=== PATIENT | female | born 1945 | race Caucasian/White ===

== ENCOUNTER 2021-03-25 10:21 | Emergency (ER) | payer MEDICARE, MEDICAID ==
[~2021-03-25] VITALS: Ht 170.2 cm; Wt 74.0 kg
[2021-03-25] MEDS ORDERED: ONDANSETRON 2MG/ML, 2ML ONE (10:52)
--- NOTE | 2021-03-25 10:57 | NUR ---
[employer] SPECIALIST PER SEP. IVF RUNNING.
[2021-03-25] MEDS ORDERED: SODIUM CHLORIDE 0.9% 1,000ML IVBOLUS ONE (11:00)
[2021-03-25] MEDS ORDERED: ONDANSETRON 2MG/ML, 2ML IVPush ONE (11:00)
--- NOTE | 2021-03-25 11:06 | NUR ---
PT AWARE OF NEED FOR URINE SAMPLE. PT STATES SHE HAS NOT HAD ANYTHING TO DRINK ALL MORNING.
[2021-03-25 11:11] LABS: BASOPHILS % (AUTO) 1 % (0-1); EOSINOPHILS % (AUTO) 1 % (1-7); LYMPHOCYTES % (AUTO) 19 % (22-44); MEAN CORPUSCULAR HEMOGLOBIN 29.6 pg (27.0-34.8); MEAN CORPUSCULAR HGB CONC 33.5 g/dL (32.4-35.8); MEAN PLATELET VOLUME 7.4 fL (7.4-10.4); MONOCYTES % (AUTO) 6 % (2-9); NEUTROPHILS % (AUTO) 73 % (42-75); PLATELET COUNT 578 x10^3/uL (130-400); RED BLOOD COUNT 4.81 x10^6/uL (3.82-5.3); RED CELL DISTRIBUTION WIDTH 14.1 % (9.6-15.2)
[2021-03-25 11:19] LABS: ANION GAP 12 mmol/L (5-15); CALCIUM 9.2 mg/dL (8.5-10.1); CHLORIDE 110 mmol/L (98-107)
[2021-03-25 11:23] LABS: ALANINE AMINOTRANSFERASE 37 U/L (12-78); ALKALINE PHOSPHATASE 159 U/L (45-117); BILIRUBIN,TOTAL 0.7 mg/dL (0.2-1.0); CREATININE 1.03 mg/dL (0.55-1.02); TOTAL PROTEIN 8.2 g/dL (6.4-8.2)
--- NOTE | 2021-03-25 12:09 | NUR ---
PT REQUESTED TO BE STRAIGHT CATH FOR URINE SAMPLE. UA COLLECTED VIA STRAIGHT CATH AND TAKEN TO LAB.
[2021-03-25 12:10] VITALS: BP 132/80
[2021-03-25 12:34] LABS: MICROSCOPIC NOT IND
[2021-03-25] MEDS ORDERED: OMNIPAQUE 350 MG/ML, 100ML BOTTLE ONE (12:44)
--- NOTE | 2021-03-25 12:55 | NUR ---
PT PLACED ON BEDPAN. PT URINATED AND SOLID BM WITHOUT PROBLEM.
--- NOTE | 2021-03-25 13:09 | NUR ---
PT PROVIDED WATER FOR PO CHALLENGE
--- NOTE | 2021-03-25 13:10 | NUR ---
ALL RESULTS ARE BACK AT THIS TIME. CHART UP FOR RECHECK.
--- NOTE | 2021-03-25 13:45 | NUR ---
PT TOLLERATED WATER WELL.
== END 2021-03-25 14:26 | disposition home or self-care (01) ==
LOC: ED 10:54
DX: E86.0 Dehydration (principal); R11.2 Nausea with vomiting, unspecified; Z87.891 Personal history of nicotine dependence
CPT/HCPCS: 36415; 74177; 80053; 81003; 83690; 85025; 93005; 96361; 96374; 99285; J2405; J7030; Q9967